=== PATIENT | male | born 1985 | race Two or more races ===

== ENCOUNTER 2024-01-13 08:25 | Inpatient (IN) | payer OTHER ==
[2024-01-13] MEDS ORDERED: METHOCARBAMOL 500 MG TABLET ONE (09:46)
[2024-01-13] MEDS ORDERED: LIDOCAINE 5% TOPICAL PATCH ONE (09:46)
[2024-01-13] MEDS ORDERED: KETOROLAC TROMETHAMINE 15 MG/ML VIAL ONE (09:47)
[2024-01-13] MEDS: LIDOCAINE 5% TOPICAL PATCH TP ONE (09:56)
[2024-01-13] MEDS: KETOROLAC TROMETHAMINE 15 MG/ML VIAL IM ONE (09:56)
[2024-01-13] MEDS: METHOCARBAMOL 500 MG TABLET PO ONE (09:56)
[2024-01-13] MEDS ORDERED: diazePAM 5 MG TABLET ONE (12:03)
[2024-01-13] MEDS ORDERED: DEXAMETHASONE SOD PHOSPHATE 10 MG/1 ML VIAL ONE (12:03)
[2024-01-13] MEDS: diazePAM 5 MG TABLET PO ONE (12:14)
[2024-01-13] MEDS: DEXAMETHASONE SOD PHOSPHATE 10 MG/1 ML VIAL IVPUSH ONE (12:14)
[2024-01-13 12:23] LABS: BASO % 0.2 % (0-2.0); HEMATOCRIT 47.7 % (35.4-49); HEMOGLOBIN 15.9 GM/dL (11.7-16.9); LYMPH % 26.1 % (8-40); MCH 28.8 pg (25.7-33.7); MCHC 33.4 g/dl (32.0-35.9); MEAN CELL VOLUME 86.1 fl (80-96); MONO % 5.5 % (3.8-10.2); NEUT % 67.2 % (42.8-82.8); PLATELET COUNT 205 10^3/uL (134-434); RBC 5.54 M/mm3 (4.00-5.60); RDW 13.6 % (11.9-15.9); WHITE BLOOD COUNT 5.5 K/mm3 (4.0-10.0)
[2024-01-13 12:40] LABS: INR 0.99 (0.83-1.09); PROTHROMBIN TIME (PATIENT) 11.2 SEC (9.7-13.0)
[2024-01-13 12:43] LABS: ACTIVATED PTT 33.3 SECONDS (25.2-36.5)
[2024-01-13 12:47] LABS: POTASSIUM 4.4 mmol/L (3.5-5.1)
[2024-01-13 12:49] LABS: ALBUMIN 3.6 g/dl (3.4-5.0); BLOOD UREA NITROGEN 13.8 mg/dL (7-18); CALCIUM 9.4 mg/dL (8.5-10.1)
[2024-01-13 12:53] LABS: CREATININE 0.9 mg/dL (0.55-1.3)
[2024-01-13 12:54] LABS: BILIRUBIN,TOTAL 0.7 mg/dL (0.2-1); TOT PROT 7.1 g/dl (6.4-8.2)
[2024-01-13] MEDS: morphine SULFATE 4 MG/ML VIAL IVPUSH ONE (16:22)
[2024-01-13] MEDS ORDERED: MORPHINE SULFATE 2 MG/ML SYRINGE IVPUSH PRN (16:22)
[2024-01-13] MEDS: GABAPENTIN 100 MG CAPSULE PO SCH (18:59)
[2024-01-13] MEDS: LIDOCAINE PATCH REMOVAL MC ONE (21:28)
[2024-01-14] MEDS: ACETAMINOPHEN 500 MG TABLET (FP) PO PRN (10:50)
[2024-01-14] MEDS: predniSONE 20 MG TABLET (UD) PO SCH (10:50)
[2024-01-14] MEDS ORDERED: ENOXAPARIN NA (PORCINE) 40 MG/0.4 ML DISP.SYRIN SQ SCH (17:00)
[2024-01-14] MEDS: LIDOCAINE 5% TOPICAL PATCH TP SCH (19:43)
[2024-01-14] MEDS: DOCUSATE SODIUM 100 MG CAPSULE (FP) PO SCH (21:12)
[2024-01-14] MEDS: ENOXAPARIN NA (PORCINE) 40 MG/0.4 ML DISP.SYRIN SQ SCH (21:13)
[2024-01-14] MEDS: LIDOCAINE PATCH REMOVAL MC SCH (23:35)
[2024-01-15 09:33] LABS: BASO % 0.2 % (0-2.0); EOS % 0.3 % (0-4.5); HEMATOCRIT 45.1 % (35.4-49); HEMOGLOBIN 14.8 GM/dL (11.7-16.9); LYMPH % 27.7 % (8-40); MCH 28.7 pg (25.7-33.7); MCHC 32.9 g/dl (32.0-35.9); MEAN CELL VOLUME 87.4 fl (80-96); MEAN PLT VOLUME 9.6 fl (7.5-11.1); MONO % 5.9 % (3.8-10.2); NEUT % 65.9 % (42.8-82.8); PLATELET COUNT 214 10^3/uL (134-434); RBC 5.17 M/mm3 (4.00-5.60); RDW 13.8 % (11.9-15.9); WHITE BLOOD COUNT 7.8 K/mm3 (4.0-10.0)
[2024-01-15 09:51] LABS: INR 1.01 (0.83-1.09); PROTHROMBIN TIME (PATIENT) 11.4 SEC (9.7-13.0)
[2024-01-15 10:19] LABS: POTASSIUM 3.9 mmol/L (3.5-5.1)
[2024-01-15 10:24] LABS: CALCIUM 9.3 mg/dL (8.5-10.1)
[2024-01-15 10:25] LABS: ALBUMIN 3.5 g/dl (3.4-5.0); BLOOD UREA NITROGEN 23.3 mg/dL (7-18); MAGNESIUM 2.3 mg/dL (1.8-2.4)
[2024-01-15 10:28] LABS: CREATININE 1.1 mg/dL (0.55-1.3)
[2024-01-15 10:30] LABS: BILIRUBIN,TOTAL 0.4 mg/dL (0.2-1); TOT PROT 6.8 g/dl (6.4-8.2)
[2024-01-16] MEDS ORDERED: KETOROLAC TROMETHAMINE 15 MG/ML VIAL IVPUSH PRN (09:54)
[2024-01-16] MEDS: KETOROLAC TROMETHAMINE 15 MG/ML VIAL IVPUSH PRN (19:48)
[2024-01-17] MEDS: oxyCODONE HCL 5 MG TABLET PO PRN (21:32)
[2024-01-18 09:48] LABS: BASO % 0.3 % (0-2.0); HEMATOCRIT 43.8 % (35.4-49); HEMOGLOBIN 14.9 GM/dL (11.7-16.9); INR 1.02 (0.83-1.09); LYMPH % 26.5 % (8-40); MCH 29.1 pg (25.7-33.7); MEAN CELL VOLUME 85.5 fl (80-96); MEAN PLT VOLUME 9.1 fl (7.5-11.1); MONO % 8.4 % (3.8-10.2); NEUT % 63.8 % (42.8-82.8); PLATELET COUNT 191 10^3/uL (134-434); PROTHROMBIN TIME (PATIENT) 11.7 SEC (9.7-13.0); RBC 5.12 M/mm3 (4.00-5.60); RDW 13.4 % (11.9-15.9); WHITE BLOOD COUNT 7.8 K/mm3 (4.0-10.0)
[2024-01-18 10:03] LABS: POTASSIUM 4.1 mmol/L (3.5-5.1)
[2024-01-18 10:07] LABS: ALBUMIN 3.1 g/dl (3.4-5.0); BLOOD UREA NITROGEN 21.1 mg/dL (7-18)
[2024-01-18 10:10] LABS: CREATININE 1.1 mg/dL (0.55-1.3)
[2024-01-18 10:11] LABS: MAGNESIUM 2.2 mg/dL (1.8-2.4)
[2024-01-18 10:12] LABS: BILIRUBIN,TOTAL 0.4 mg/dL (0.2-1); TOT PROT 6.4 g/dl (6.4-8.2)
[2024-01-19 09:23] LABS: BASO % 0.1 % (0-2.0); EOS % 0.4 % (0-4.5); HEMATOCRIT 45.3 % (35.4-49); HEMOGLOBIN 15.1 GM/dL (11.7-16.9); LYMPH % 19.6 % (8-40); MCH 28.9 pg (25.7-33.7); MCHC 33.2 g/dl (32.0-35.9); MEAN PLT VOLUME 8.8 fl (7.5-11.1); MONO % 7.3 % (3.8-10.2); NEUT % 72.6 % (42.8-82.8); PLATELET COUNT 204 10^3/uL (134-434); RBC 5.21 M/mm3 (4.00-5.60); RDW 13.1 % (11.9-15.9); WHITE BLOOD COUNT 10.7 K/mm3 (4.0-10.0)
[2024-01-19 09:34] LABS: INR 1.02 (0.83-1.09); PROTHROMBIN TIME (PATIENT) 11.5 SEC (9.7-13.0)
[2024-01-19 09:57] LABS: ALBUMIN 3.3 g/dl (3.4-5.0); BLOOD UREA NITROGEN 21.1 mg/dL (7-18); CALCIUM 9.2 mg/dL (8.5-10.1); MAGNESIUM 2.3 mg/dL (1.8-2.4)
[2024-01-19 10:01] LABS: BILIRUBIN,TOTAL 0.4 mg/dL (0.2-1); TOT PROT 6.8 g/dl (6.4-8.2)
[2024-01-19] MEDS: LIDOCAINE 1%/EPI 1:100000 (20 ML MULTI DOSE VIAL) IJ ONE ×2 (13:08→14:23)
[2024-01-19] MEDS: VANCOMYCIN 1 GM in D5W (PRE-DOCKED) 1,000 MG/250 ML (RESTRICTED TO ID ONLY IVPB ONE ×2 (13:09→14:20)
[2024-01-19] MEDS: GENTAMICIN 80MG PREMIX BAG IVPB ONE ×2 (13:09→15:13)
[2024-01-19] MEDS: ceFAZolin SODIUM 1 GM VIAL IVPB ONE ×2 (13:09→14:20)
[2024-01-19] MEDS: HYDROGEN PEROXIDE 473 ML PO ONE ×2 (13:10→15:13)
[2024-01-19] MEDS ORDERED: LIDOCAINE 1%/EPI 1:100000 (20 ML MULTI DOSE VIAL) ONE (13:21)
[2024-01-19] MEDS ORDERED: THROMBIN (BOVINE) 20,000 UNIT VIAL TP ONE (13:21)
[2024-01-19] MEDS ORDERED: BUPIVACAINE LIPOSOME/PF (EXPAREL) 266 MG/20 ML VIAL ONE (13:21)
[2024-01-19] MEDS ORDERED: BUPIVACAINE HCL/PF 0.5% (5MG/ML) 10 ML VIAL ONE (13:21)
[2024-01-19] MEDS ORDERED: GENTAMICIN SO4 80 MG/2 ML VIAL ONE (13:21)
[2024-01-19] MEDS ORDERED: MIDAZOLAM HCL 2 MG/2 ML SINGLE DOSE VIAL ONE (13:51)
[2024-01-19] MEDS ORDERED: ROCURONIUM BROMIDE 50 MG/5 ML SYRINGE ONE ×2 (13:51→14:09)
[2024-01-19] MEDS ORDERED: PROPOFOL 20 ML ONE (13:51)
[2024-01-19] MEDS ORDERED: ceFAZolin SODIUM 1 GM VIAL ONE (14:20)
[2024-01-19] MEDS ORDERED: VANCOMYCIN 1,000 MG VIAL (RESTRICTED TO ID ONLY) ONE (14:22)
[2024-01-19] MEDS ORDERED: TRANEXAMIC ACID 1000 MG/10 ML VIAL ONE (14:23)
[2024-01-19] MEDS ORDERED: HYDROmorphone HCl 2 MG/ML VIAL ONE (14:31)
[2024-01-19] MEDS ORDERED: LIDOCAINE HCL/PF 2% SDV 5ML VIAL ONE (14:46)
[2024-01-19] MEDS: BUPIVACAINE HCL/PF 0.5% (5MG/ML) 10 ML VIAL IJ ONE (16:30)
[2024-01-19] MEDS: BUPIVACAINE LIPOSOME/PF (EXPAREL) 266 MG/20 ML VIAL NR ONE (16:30)
[2024-01-19] MEDS ORDERED: ONDANSETRON 4 MG/2 ML VIAL IVPUSH PRN ×2 (16:57→18:14)
[2024-01-19] MEDS ORDERED: oxyCODONE HCL 5 MG TABLET PO PRN ×4 (16:57→18:14)
[2024-01-19] MEDS ORDERED: LACTATED RINGERS SOLUTION 1,000 ML IV SCH (17:00)
[2024-01-19] MEDS: CEFAZOLIN 1 GM in DEXTROSE 5%-WATER - 50 ML IVPB SCH (18:00)
[2024-01-19] MEDS: LACTATED RINGERS SOLUTION 1,000 ML IV SCH (19:20)
[2024-01-19] MEDS: KETOROLAC TROMETHAMINE 15 MG/ML VIAL IVPUSH PRN (20:09)
[2024-01-19] MEDS: GABAPENTIN 100 MG CAPSULE PO SCH (21:18)
[2024-01-19] MEDS: DOCUSATE SODIUM 100 MG CAPSULE (FP) PO SCH (21:18)
[2024-01-19] MEDS: LIDOCAINE PATCH REMOVAL MC SCH (21:20)
[2024-01-20] MEDS: CEFAZOLIN 1 GM/D5W 1 GM/50 ML BAG IVPB SCH (02:02)
[2024-01-20] MEDS: PANTOPRAZOLE 40 MG TABLET PO SCH (09:17)
[2024-01-20] MEDS: predniSONE 20 MG TABLET (UD) PO SCH (09:17)
[2024-01-20] MEDS: ACETAMINOPHEN 500 MG TABLET (FP) PO PRN (09:17)
[2024-01-20] MEDS: LIDOCAINE 5% TOPICAL PATCH TP SCH (09:18)
[2024-01-20 09:39] LABS: INR 1.12 (0.83-1.09); PROTHROMBIN TIME (PATIENT) 12.8 SEC (9.7-13.0)
[2024-01-20 09:44] LABS: EOS % 0.4 % (0-4.5); HEMATOCRIT 36.3 % (35.4-49); HEMOGLOBIN 12.6 GM/dL (11.7-16.9); LYMPH % 15.1 % (8-40); MCH 29.6 pg (25.7-33.7); MCHC 34.7 g/dl (32.0-35.9); MEAN CELL VOLUME 85.5 fl (80-96); MONO % 9.5 % (3.8-10.2); PLATELET COUNT 161 10^3/uL (134-434); RBC 4.25 M/mm3 (4.00-5.60); RDW 13.6 % (11.9-15.9); WHITE BLOOD COUNT 9.8 K/mm3 (4.0-10.0)
[2024-01-20] MEDS ORDERED: PANTOPRAZOLE 40 MG TABLET PO SCH (10:00)
[2024-01-20 10:02] LABS: POTASSIUM 4.1 mmol/L (3.5-5.1)
[2024-01-20 10:13] LABS: BLOOD UREA NITROGEN 20.2 mg/dL (7-18); CALCIUM 8.4 mg/dL (8.5-10.1); MAGNESIUM 2.5 mg/dL (1.8-2.4)
[2024-01-20 10:17] LABS: BILIRUBIN,TOTAL 0.5 mg/dL (0.2-1); TOT PROT 5.2 g/dl (6.4-8.2)
[2024-01-20 10:21] LABS: ALBUMIN 2.5 g/dl (3.4-5.0)
[2024-01-20] MEDS: oxyCODONE HCL 5 MG TABLET PO ONE (18:46)
[2024-01-20] MEDS: oxyCODONE HCL 5 MG TABLET PO PRN (21:34)
[2024-01-21] MEDS: ACETAMINOPHEN 1000 MG/100 ML BAG IVPB ONE (04:46)
[2024-01-21] MEDS: POLYETHYLENE GLYCOL (HEALTHYLAX) 3350 17 GM PACKET PO ONE (10:43)
[2024-01-21] MEDS: ACETAMINOPHEN 1000 MG/100 ML BAG IVPB SCH (10:48)
[2024-01-21] MEDS: GABAPENTIN 300 MG CAPSULE PO SCH (13:19)
[2024-01-21] MEDS ORDERED: HYDROmorphone HCL CARPU-JECT 2 MG/1 ML DISP.SYRIN IVPUSH PRN (15:10)
[2024-01-21] MEDS: oxyCODONE HCL 10 MG SUSTAINED ACTING TABLET PO SCH (16:42)
[2024-01-21] MEDS: GABAPENTIN 400 MG CAPSULE PO SCH (21:08)
[2024-01-21] MEDS: DOCUSATE SODIUM 100 MG CAPSULE (FP) PO SCH (21:09)
[2024-01-22] MEDS: oxyCODONE HCL 5 MG TABLET PO PRN (04:35)
[2024-01-22] MEDS: SIMETHICONE 80 MG TAB.CHEW (FP) PO ONE (07:14)
[2024-01-22] MEDS: POLYETHYLENE GLYCOL (HEALTHYLAX) 3350 17 GM PACKET PO SCH (10:09)
[2024-01-22 10:24] LABS: BASO % 0.1 % (0-2.0); EOS % 0.6 % (0-4.5); HEMATOCRIT 37.7 % (35.4-49); HEMOGLOBIN 12.9 GM/dL (11.7-16.9); LYMPH % 16.1 % (8-40); MCH 29.5 pg (25.7-33.7); MCHC 34.3 g/dl (32.0-35.9); MEAN PLT VOLUME 8.8 fl (7.5-11.1); MONO % 8.9 % (3.8-10.2); NEUT % 74.3 % (42.8-82.8); PLATELET COUNT 164 10^3/uL (134-434); RBC 4.38 M/mm3 (4.00-5.60); RDW 13.6 % (11.9-15.9)
[2024-01-22 12:14] LABS: POTASSIUM 4.1 mmol/L (3.5-5.1)
[2024-01-22 12:25] LABS: CALCIUM 8.8 mg/dL (8.5-10.1)
[2024-01-22 12:26] LABS: ALBUMIN 2.8 g/dl (3.4-5.0); BLOOD UREA NITROGEN 16.6 mg/dL (7-18); MAGNESIUM 2.1 mg/dL (1.8-2.4)
[2024-01-22 12:28] LABS: CREATININE 0.9 mg/dL (0.55-1.3)
[2024-01-22 12:30] LABS: BILIRUBIN,TOTAL 0.5 mg/dL (0.2-1)
[2024-01-22] MEDS: diazePAM 5 MG TABLET PO PRN (17:02)
[2024-01-23] MEDS: oxyCODONE HCL 5 MG TABLET PO PRN (04:56)
[2024-01-23 08:46] LABS: BASO % 0.1 % (0-2.0); EOS % 0.6 % (0-4.5); HEMATOCRIT 37.1 % (35.4-49); HEMOGLOBIN 12.9 GM/dL (11.7-16.9); LYMPH % 18.9 % (8-40); MCH 29.7 pg (25.7-33.7); MCHC 34.8 g/dl (32.0-35.9); MEAN CELL VOLUME 85.4 fl (80-96); MEAN PLT VOLUME 8.8 fl (7.5-11.1); MONO % 10.2 % (3.8-10.2); NEUT % 70.2 % (42.8-82.8); PLATELET COUNT 162 10^3/uL (134-434); RBC 4.35 M/mm3 (4.00-5.60); RDW 13.5 % (11.9-15.9); WHITE BLOOD COUNT 10.4 K/mm3 (4.0-10.0)
[2024-01-23 09:35] LABS: POTASSIUM 4.2 mmol/L (3.5-5.1)
[2024-01-23 09:37] LABS: CALCIUM 8.6 mg/dL (8.5-10.1)
[2024-01-23 09:38] LABS: ALBUMIN 2.7 g/dl (3.4-5.0); BLOOD UREA NITROGEN 16.9 mg/dL (7-18); MAGNESIUM 2.2 mg/dL (1.8-2.4)
[2024-01-23 09:41] LABS: CREATININE 0.9 mg/dL (0.55-1.3)
[2024-01-23 09:42] LABS: BILIRUBIN,TOTAL 0.6 mg/dL (0.2-1)
[2024-01-23] MEDS: POLYETHYLENE GLYCOL (HEALTHYLAX) 3350 17 GM PACKET PO SCH ×2 (10:42→21:07)
[2024-01-23] MEDS: SENNOSIDES 8.6MG TABLET (FP) PO SCH ×2 (10:42→21:08)
[2024-01-23] MEDS: SIMETHICONE 80 MG TAB.CHEW (FP) PO PRN (10:42)
[2024-01-23] MEDS: HEPARIN NA (PORCINE) 5,000 UNITS/ML 1ML VIAL SQ SCH ×2 (13:15→21:09)
[2024-01-23] MEDS: LIDOCAINE 5% TOPICAL PATCH TP ONE (16:34)
[2024-01-23] MEDS ORDERED: SIMETHICONE 80 MG TAB.CHEW (FP) PO PRN (16:44)
[2024-01-23] MEDS ORDERED: oxyCODONE HCL 5 MG TABLET PO PRN (16:44)
[2024-01-23] MEDS ORDERED: HYDROmorphone HCL CARPU-JECT 2 MG/1 ML DISP.SYRIN IVPUSH PRN (16:44)
[2024-01-23] MEDS ORDERED: diazePAM 5 MG TABLET PO PRN (16:44)
[2024-01-23] MEDS: oxyCODONE HCL 10 MG SUSTAINED ACTING TABLET PO SCH (21:08)
[2024-01-23] MEDS: GABAPENTIN 400 MG CAPSULE PO SCH (21:08)
[2024-01-23] MEDS: DOCUSATE SODIUM 100 MG CAPSULE (FP) PO SCH (21:08)
[2024-01-23] MEDS: LIDOCAINE PATCH REMOVAL MC SCH ×2 (21:15)
[2024-01-24] MEDS: oxyCODONE HCL 5 MG TABLET PO PRN (02:03)
[2024-01-24 08:32] LABS: BASO % 0.2 % (0-2.0); EOS % 0.3 % (0-4.5); HEMATOCRIT 39.3 % (35.4-49); HEMOGLOBIN 13.1 GM/dL (11.7-16.9); LYMPH % 15.8 % (8-40); MCH 28.8 pg (25.7-33.7); MCHC 33.3 g/dl (32.0-35.9); MEAN CELL VOLUME 86.4 fl (80-96); MONO % 8.4 % (3.8-10.2); NEUT % 75.3 % (42.8-82.8); PLATELET COUNT 174 10^3/uL (134-434); RBC 4.55 M/mm3 (4.00-5.60); RDW 13.2 % (11.9-15.9); WHITE BLOOD COUNT 11.5 K/mm3 (4.0-10.0)
[2024-01-24 08:46] LABS: POTASSIUM 4.2 mmol/L (3.5-5.1)
[2024-01-24 08:53] LABS: ALBUMIN 2.7 g/dl (3.4-5.0); BLOOD UREA NITROGEN 19.2 mg/dL (7-18); MAGNESIUM 2.4 mg/dL (1.8-2.4)
[2024-01-24 08:54] LABS: CREATININE 0.9 mg/dL (0.55-1.3)
[2024-01-24 08:55] LABS: BILIRUBIN,TOTAL 0.5 mg/dL (0.2-1); TOT PROT 6.2 g/dl (6.4-8.2)
[2024-01-24] MEDS: PANTOPRAZOLE 40 MG TABLET PO SCH (10:51)
[2024-01-24] MEDS: predniSONE 20 MG TABLET (UD) PO SCH (10:51)
[2024-01-24] MEDS: LIDOCAINE 5% TOPICAL PATCH TP SCH (10:51)
[2024-01-24] MEDS: SODIUM PHOSPHATE/NA BIPHOS 133 ML ENEMA RC ONE (13:00)
[2024-01-24 13:40] LABS: N-TERMINAL BNP 73.4 pg/ml (5-125)
[2024-01-25] MEDS: ACETAMINOPHEN 325 MG TABLET (FP) PO ONE (06:30)
[2024-01-25 07:50] LABS: HEMATOCRIT 35.5 % (35.4-49); MCH 29.1 pg (25.7-33.7); MCHC 33.9 g/dl (32.0-35.9); MEAN CELL VOLUME 85.8 fl (80-96); MEAN PLT VOLUME 8.2 fl (7.5-11.1); PLATELET COUNT 157 10^3/uL (134-434); RBC 4.14 M/mm3 (4.00-5.60); RDW 13.1 % (11.9-15.9); WHITE BLOOD COUNT 11.5 K/mm3 (4.0-10.0)
[2024-01-25 08:05] LABS: CHLORIDE 101 mmol/L (98-107); POTASSIUM 4.2 mmol/L (3.5-5.1); SODIUM 137 mmol/L (136-145)
[2024-01-25 08:06] LABS: CALCIUM 8.7 mg/dL (8.5-10.1)
[2024-01-25 08:07] LABS: ALBUMIN 2.6 g/dl (3.4-5.0); ANION GAP 6 mmol/L (4-13); BLOOD UREA NITROGEN 18.1 mg/dL (7-18); CO2 29 mmol/L (21-32); GLUCOSE,RANDOM 99 mg/dL (74-106)
[2024-01-25 08:10] LABS: CREATININE 0.9 mg/dL (0.55-1.3); SGOT/AST 113 U/L (15-37); SGPT/ALT 279 U/L (13-61)
[2024-01-25 08:12] LABS: BILIRUBIN,TOTAL 0.8 mg/dL (0.2-1); TOT PROT 6.1 g/dl (6.4-8.2)
[2024-01-25 08:15] LABS: ALK PHOS 183 U/L (45-117)
[2024-01-25] MEDS: predniSONE 20 MG TABLET (UD) PO SCH (09:52)
[2024-01-25] MEDS ORDERED: oxyCODONE HCL 10 MG SUSTAINED ACTING TABLET PO SCH (14:30)
[2024-01-25 14:40] LABS: BILIRUBIN,DIRECT 0.2 mg/dL (0.0-0.2)
[2024-01-26] MEDS: oxyCODONE HCL 5 MG TABLET PO PRN (01:33)
[2024-01-26] MEDS: ACETAMINOPHEN 325 MG TABLET (FP) PO ONE (05:51)
[2024-01-26 07:20] LABS: HEMATOCRIT 37.3 % (35.4-49); HEMOGLOBIN 12.6 GM/dL (11.7-16.9); MCH 29.1 pg (25.7-33.7); MCHC 33.7 g/dl (32.0-35.9); MEAN CELL VOLUME 86.3 fl (80-96); MEAN PLT VOLUME 8.5 fl (7.5-11.1); PLATELET COUNT 169 10^3/uL (134-434); RBC 4.32 M/mm3 (4.00-5.60); RDW 12.8 % (11.9-15.9); WHITE BLOOD COUNT 12.4 K/mm3 (4.0-10.0)
[2024-01-26 07:33] LABS: POTASSIUM 4.2 mmol/L (3.5-5.1)
[2024-01-26 07:41] LABS: ALBUMIN 2.8 g/dl (3.4-5.0); CALCIUM 8.8 mg/dL (8.5-10.1)
[2024-01-26 07:42] LABS: BLOOD UREA NITROGEN 17.1 mg/dL (7-18)
[2024-01-26 07:45] LABS: CREATININE 0.9 mg/dL (0.55-1.3)
[2024-01-26 07:46] LABS: BILIRUBIN,TOTAL 0.8 mg/dL (0.2-1); TOT PROT 6.3 g/dl (6.4-8.2)
[2024-01-26] MEDS ORDERED: morphine CARPU-JECT 2 MG/1 ML DISP.SYRIN IVPUSH PRN (09:58)
[2024-01-26] MEDS ORDERED: oxyCODONE HCL 5 MG TABLET PO PRN ×2 (09:59→12:06)
[2024-01-26] MEDS: ENOXAPARIN NA (PORCINE) 40 MG/0.4 ML DISP.SYRIN SQ SCH (10:24)
[2024-01-26] MEDS: oxyCODONE HCL 10 MG SUSTAINED ACTING TABLET PO SCH (10:25)
[2024-01-26] MEDS ORDERED: SIMETHICONE 80 MG TAB.CHEW (FP) PO PRN (12:39)
[2024-01-26] MEDS: POLYETHYLENE GLYCOL (HEALTHYLAX) 3350 17 GM PACKET PO SCH (13:56)
[2024-01-26] MEDS: SIMETHICONE 80 MG TAB.CHEW (FP) PO SCH (16:50)
[2024-01-26] MEDS ORDERED: HEPARIN NA (PORCINE) 5,000 UNITS/ML 1ML VIAL IVPUSH PRN (19:31)
[2024-01-26] MEDS: HEPARIN NA (PORCINE) 5,000 UNITS/ML 1ML VIAL IVPUSH PRN (21:42)
[2024-01-26] MEDS: HEPARIN INFUSION - 25,000 UNITS/500 ML INFUS.BAG IVPB SCH (21:43)
[2024-01-26] MEDS ORDERED: CHLORHEXIDINE GLUCONATE 4% CLEANSER FOR DECOLONIZATION TP SCH (22:00)
[2024-01-26] MEDS ORDERED: MUPIROCIN 2% TOPICAL OINTMENT FOR DECOLONIZATION NS SCH (22:00)
[2024-01-26] MEDS ORDERED: SENNOSIDES 8.6MG TABLET (FP) PO SCH (22:00)
[2024-01-26] MEDS ORDERED: DOCUSATE SODIUM 100 MG CAPSULE (FP) PO SCH (22:00)
[2024-01-26] MEDS: HEPARIN NA (PORCINE) 5,000 UNITS/ML 1ML VIAL SQ SCH (22:19)
[2024-01-26] MEDS: LIDOCAINE PATCH REMOVAL MC SCH (22:19)
[2024-01-26 23:41] LABS: BASO % 0.3 % (0-2.0); EOS % 0.2 % (0-4.5); HEMATOCRIT 40.4 % (35.4-49); HEMOGLOBIN 13.3 GM/dL (11.7-16.9); LYMPH % 9.5 % (8-40); MCH 28.5 pg (25.7-33.7); MCHC 32.9 g/dl (32.0-35.9); MEAN CELL VOLUME 86.7 fl (80-96); MEAN PLT VOLUME 8.4 fl (7.5-11.1); MONO % 7.5 % (3.8-10.2); NEUT % 82.5 % (42.8-82.8); PLATELET COUNT 218 10^3/uL (134-434); RBC 4.65 M/mm3 (4.00-5.60); RDW 13.1 % (11.9-15.9); WHITE BLOOD COUNT 13.4 K/mm3 (4.0-10.0)
[2024-01-27 00:43] LABS: ALBUMIN 2.7 g/dl (3.4-5.0); BILIRUBIN,TOTAL 0.8 mg/dL (0.2-1); BLOOD UREA NITROGEN 15.8 mg/dL (7-18); CALCIUM 8.7 mg/dL (8.5-10.1); CREATININE 0.9 mg/dL (0.55-1.3); MAGNESIUM 2.4 mg/dL (1.8-2.4); PHOSPHOROUS 3.7 mg/dL (2.5-4.9); POTASSIUM 4.2 mmol/L (3.5-5.1); TOT PROT 6.6 g/dl (6.4-8.2)
[2024-01-27 07:37] LABS: HEMATOCRIT 37.1 % (35.4-49); HEMOGLOBIN 12.8 GM/dL (11.7-16.9); MCH 29.5 pg (25.7-33.7); MCHC 34.5 g/dl (32.0-35.9); MEAN CELL VOLUME 85.4 fl (80-96); MEAN PLT VOLUME 8.5 fl (7.5-11.1); PLATELET COUNT 188 10^3/uL (134-434); RBC 4.34 M/mm3 (4.00-5.60); RDW 13.1 % (11.9-15.9); WHITE BLOOD COUNT 12.1 K/mm3 (4.0-10.0)
[2024-01-27 08:07] LABS: ALBUMIN 2.6 g/dl (3.4-5.0); BLOOD UREA NITROGEN 17.8 mg/dL (7-18); CREATININE 0.9 mg/dL (0.55-1.3); MAGNESIUM 2.4 mg/dL (1.8-2.4); POTASSIUM 4.1 mmol/L (3.5-5.1)
[2024-01-27 08:10] LABS: BILIRUBIN,TOTAL 0.8 mg/dL (0.2-1); TOT PROT 6.6 g/dl (6.4-8.2)
[2024-01-27] MEDS: PANTOPRAZOLE 40 MG TABLET PO SCH (10:00)
[2024-01-27] MEDS ORDERED: ENOXAPARIN NA (PORCINE) 40 MG/0.4 ML DISP.SYRIN SQ SCH (10:00)
[2024-01-27] MEDS ORDERED: predniSONE 20 MG TABLET (UD) PO SCH (10:00)
[2024-01-27] MEDS: MUPIROCIN 2% TOPICAL OINTMENT FOR DECOLONIZATION NS SCH (11:00)
[2024-01-27] MEDS: LIDOCAINE 5% TOPICAL PATCH TP SCH (11:09)
[2024-01-27] MEDS ORDERED: HEPARIN INFUSION - 25,000 UNITS/500 ML INFUS.BAG IVPB SCH (11:15)
[2024-01-27] MEDS ORDERED: HEPARIN NA (PORCINE) 5,000 UNITS/ML 1ML VIAL IVPUSH PRN (11:41)
[2024-01-27] MEDS: HEPARIN INFUSION - 25,000 UNITS/500 ML INFUS.BAG IVPB SCH (11:49)
[2024-01-27] MEDS: HEPARIN NA (PORCINE) 5,000 UNITS/ML 1ML VIAL IVPUSH ONE (11:59)
[2024-01-27] MEDS: SIMETHICONE 80 MG TAB.CHEW (FP) PO SCH (12:12)
[2024-01-27] MEDS ORDERED: MIDAZOLAM HCL 2 MG/2 ML SINGLE DOSE VIAL ONE (12:46)
[2024-01-27] MEDS ORDERED: HEPARIN NA (PORCINE) 5,000 UNITS/ML 1ML VIAL ONE (15:33)
[2024-01-27] MEDS: LIDOCAINE PATCH REMOVAL MC SCH (21:01)
[2024-01-27] MEDS ORDERED: CHLORHEXIDINE GLUCONATE 4% CLEANSER FOR DECOLONIZATION TP SCH (22:00)
[2024-01-27] MEDS: oxyCODONE HCL 5 MG TABLET PO PRN (22:35)
[2024-01-27] MEDS: ONDANSETRON 4 MG/2 ML VIAL IVPUSH PRN (23:12)
[2024-01-28] MEDS: HEPARIN NA (PORCINE) 5,000 UNITS/ML 1ML VIAL IVPUSH PRN (04:26)
[2024-01-28 07:11] LABS: BASO % 0.3 % (0-2.0); EOS % 0.3 % (0-4.5); HEMATOCRIT 36.9 % (35.4-49); HEMOGLOBIN 12.4 GM/dL (11.7-16.9); LYMPH % 9.8 % (8-40); MCH 28.9 pg (25.7-33.7); MCHC 33.5 g/dl (32.0-35.9); MEAN CELL VOLUME 86.3 fl (80-96); MEAN PLT VOLUME 8.3 fl (7.5-11.1); NEUT % 79.6 % (42.8-82.8); PLATELET COUNT 227 10^3/uL (134-434); RBC 4.27 M/mm3 (4.00-5.60); RDW 13.2 % (11.9-15.9); WHITE BLOOD COUNT 13.3 K/mm3 (4.0-10.0)
[2024-01-28 07:17] LABS: POTASSIUM 4.2 mmol/L (3.5-5.1)
[2024-01-28 07:21] LABS: ALBUMIN 2.4 g/dl (3.4-5.0); BLOOD UREA NITROGEN 18.2 mg/dL (7-18); CALCIUM 8.7 mg/dL (8.5-10.1)
[2024-01-28 07:24] LABS: CREATININE 0.9 mg/dL (0.55-1.3)
[2024-01-28 07:26] LABS: TOT PROT 6.8 g/dl (6.4-8.2)
[2024-01-28 07:54] LABS: INR 1.28 (0.83-1.09); PROTHROMBIN TIME (PATIENT) 14.6 SEC (9.7-13.0)
[2024-01-28] MEDS: PANTOPRAZOLE 40 MG TABLET PO SCH (09:20)
[2024-01-28] MEDS: LIDOCAINE 5% TOPICAL PATCH TP SCH (09:20)
[2024-01-28] MEDS ORDERED: predniSONE 10 MG TABLET (UD) PO SCH ×2 (10:00)
[2024-01-28] MEDS: APIXABAN 5 MG TABLET PO SCH ×2 (11:14→22:10)
[2024-01-28 14:14] VITALS: BMI 28.4
[2024-01-28] MEDS ORDERED: ONDANSETRON 4 MG/2 ML VIAL IVPUSH PRN (17:54)
[2024-01-28] MEDS ORDERED: LIDOCAINE PATCH REMOVAL MC SCH (22:00)
[2024-01-28] MEDS: LIDOCAINE PATCH REMOVAL MC SCH (22:17)
[2024-01-29] MEDS: oxyCODONE HCL 5 MG TABLET PO PRN ×2 (02:29→20:20)
[2024-01-29] MEDS: NITROGLYCERIN SUBLINGUAL 1/150 0.4 MG TAB SL ONE (03:35)
[2024-01-29 03:41] LABS: BASO % 0.2 % (0-2.0); EOS % 0.4 % (0-4.5); HEMATOCRIT 36.3 % (35.4-49); HEMOGLOBIN 11.8 GM/dL (11.7-16.9); LYMPH % 10.5 % (8-40); MCH 28.2 pg (25.7-33.7); MCHC 32.6 g/dl (32.0-35.9); MEAN CELL VOLUME 86.3 fl (80-96); MEAN PLT VOLUME 8.1 fl (7.5-11.1); MONO % 7.3 % (3.8-10.2); NEUT % 81.6 % (42.8-82.8); PLATELET COUNT 202 10^3/uL (134-434); WHITE BLOOD COUNT 11.8 K/mm3 (4.0-10.0)
[2024-01-29 03:54] LABS: ARTERIAL BLOOD GAS BASE EXCESS 0.3 mmol/L (-2-2); ARTERIAL BLOOD GAS PO2 83.6 mmHg (80-100); ARTERIAL BLOOD GAS pH 7.484 (7.350-7.450)
[2024-01-29 03:55] LABS: ALLENS TEST POSITIVE
[2024-01-29 03:57] LABS: POTASSIUM 4.6 mmol/L (3.5-5.1)
[2024-01-29 03:59] LABS: CALCIUM 8.8 mg/dL (8.5-10.1)
[2024-01-29 04:00] LABS: ALBUMIN 2.4 g/dl (3.4-5.0); BLOOD UREA NITROGEN 18.7 mg/dL (7-18); MAGNESIUM 2.2 mg/dL (1.8-2.4)
[2024-01-29 04:03] LABS: PHOSPHOROUS 2.8 mg/dL (2.5-4.9)
[2024-01-29 04:04] LABS: BILIRUBIN,TOTAL 0.8 mg/dL (0.2-1); TOT PROT 6.6 g/dl (6.4-8.2)
[2024-01-29] MEDS ORDERED: ONDANSETRON 4 MG/2 ML VIAL IVPUSH PRN (07:50)
[2024-01-29] MEDS: ENOXAPARIN NA (PORCINE) 100 MG/1 ML DISP.SYRIN SQ SCH (09:15)
[2024-01-29] MEDS: PANTOPRAZOLE 40 MG TABLET PO SCH (09:15)
[2024-01-29] MEDS: LIDOCAINE 5% TOPICAL PATCH TP SCH (09:16)
[2024-01-29] MEDS: PIPERACILLIN/TAZOB 3.375 GM 3.375 GM in DEXTROSE 5%-WATER - 50 ML IVPB SCH (09:16)
[2024-01-29] MEDS ORDERED: PIPERACILLIN/TAZOB 3.375 GM 3.375 GM in DEXTROSE 5%-WATER - 50 ML IVPB SCH (10:00)
[2024-01-29] MEDS ORDERED: APIXABAN 5 MG TABLET PO SCH (10:00)
[2024-01-29] MEDS ORDERED: LIDOCAINE 5% TOPICAL PATCH TP SCH (10:00)
[2024-01-29] MEDS ORDERED: PANTOPRAZOLE 40 MG TABLET PO SCH (10:00)
[2024-01-29] MEDS: ACETAMINOPHEN 325 MG TABLET (FP) PO PRN (12:05)
[2024-01-29] MEDS: ALPRAZolam 0.25 MG TABLET PO PRN (20:20)
[2024-01-29] MEDS: KETOROLAC TROMETHAMINE 15 MG/ML VIAL IM ONE (20:21)
[2024-01-29] MEDS: APIXABAN 5 MG TABLET PO SCH (21:01)
[2024-01-29] MEDS: LIDOCAINE PATCH REMOVAL MC SCH (21:02)
[2024-01-30 09:16] LABS: BASO % 0.2 % (0-2.0); EOS % 0.7 % (0-4.5); HEMOGLOBIN 12.1 GM/dL (11.7-16.9); LYMPH % 10.6 % (8-40); MCH 28.9 pg (25.7-33.7); MCHC 33.7 g/dl (32.0-35.9); MEAN CELL VOLUME 85.8 fl (80-96); MEAN PLT VOLUME 8.5 fl (7.5-11.1); MONO % 6.3 % (3.8-10.2); NEUT % 82.2 % (42.8-82.8); PLATELET COUNT 267 10^3/uL (134-434); RBC 4.19 M/mm3 (4.00-5.60); RDW 13.2 % (11.9-15.9); WHITE BLOOD COUNT 10.6 K/mm3 (4.0-10.0)
[2024-01-30 09:51] LABS: POTASSIUM 4.2 mmol/L (3.5-5.1)
[2024-01-30 10:06] LABS: ALBUMIN 2.5 g/dl (3.4-5.0); CALCIUM 9.4 mg/dL (8.5-10.1)
[2024-01-30 10:10] LABS: CREATININE 0.9 mg/dL (0.55-1.3)
[2024-01-30 10:11] LABS: BILIRUBIN,TOTAL 1.1 mg/dL (0.2-1); TOT PROT 6.7 g/dl (6.4-8.2)
[2024-01-30 10:14] LABS: BLOOD UREA NITROGEN 18.1 mg/dL (7-18)
[2024-01-30] MEDS ORDERED: oxyCODONE HCL 5 MG TABLET PO PRN (13:14)
[2024-01-30] MEDS: ACETAMINOPHEN 1000 MG/100 ML BAG IVPB SCH (13:35)
[2024-01-30] MEDS: morphine SULFATE 4 MG/ML VIAL IVPUSH PRN (13:39)
[2024-01-30] MEDS: POLYETHYLENE GLYCOL (HEALTHYLAX) 3350 17 GM PACKET PO SCH (14:48)
[2024-01-30] MEDS: CELECOXIB 200 MG CAPSULE PO SCH (16:05)
[2024-01-30 18:36] VITALS: BP 97/58; PULSE 98; RESP 17; TEMP 98.6
[2024-01-30] MEDS ORDERED: SENNOSIDES 8.6MG TABLET (FP) PO SCH (22:00)
== END 2024-01-30 22:36 | disposition short-term general hospital (02) | DRG 304 ==
LOC: JER 08:25 → JERBED 16:12 → OBSVTOIN 16:21 → J8W 16:59 → J4W 01-23 17:44 → J6S 01-26 12:09 → J8W 01-26 21:05 → J4W 01-26 21:13 → JICU 01-26 23:14 → J7W 01-28 17:52 → J4S 01-29 06:42
PROVIDERS: ADMIT Internal Medicine; ATTEND Internal Medicine
PROC: 0SG30K1 Fusion of Lumbosacral Joint with Nonautologous Tissue Substitute, Posterior Approach, Posterior Column, Open Approach (ICD-10-PCS; 2024-01-19)
PROC: 0SB40ZZ Excision of Lumbosacral Disc, Open Approach (ICD-10-PCS; 2024-01-19)
PROC: 0QS004Z Reposition Lumbar Vertebra with Internal Fixation Device, Open Approach (ICD-10-PCS; 2024-01-19)
PROC: 0SG30AJ Fusion of Lumbosacral Joint with Interbody Fusion Device, Posterior Approach, Anterior Column, Open Approach (ICD-10-PCS; principal; 2024-01-19 13:00)
PROC: 01NB0ZZ Release Lumbar Nerve, Open Approach (ICD-10-PCS; 2024-01-27)
PROC: 02CQ3ZZ Extirpation of Matter from Right Pulmonary Artery, Percutaneous Approach (ICD-10-PCS; 2024-01-27)
PROC: B30SZZZ Plain Radiography of Right Pulmonary Artery (ICD-10-PCS; 2024-01-27)
DX: M51.16 Intervertebral disc disorders with radiculopathy, lumbar region (principal); I26.92 Saddle embolus of pulmonary artery without acute cor pulmonale; I26.94 Multiple subsegmental thrombotic pulmonary emboli without acute cor pulmonale; I82.412 Acute embolism and thrombosis of left femoral vein; J90 Pleural effusion, not elsewhere classified; I82.432 Acute embolism and thrombosis of left popliteal vein; I82.442 Acute embolism and thrombosis of left tibial vein; R04.2 Hemoptysis; T81.72XA Complication of vein following a procedure, not elsewhere classified, initial encounter; G97.82 Other postprocedural complications and disorders of nervous system; Y83.8 Other surgical procedures as the cause of abnormal reaction of the patient, or of later complication, without mention of misadventure at the time of the procedure; M43.16 Spondylolisthesis, lumbar region; R07.89 Other chest pain; R50.9 Fever, unspecified; R26.2 Difficulty in walking, not elsewhere classified; K59.03 Drug induced constipation; T40.2X5A Adverse effect of other opioids, initial encounter
CPT/HCPCS: 0241U-QW; 36415; 36600; 37184; 71045-TC-FY; 71275-TC; 72131-TC; 72148-TC; 72192-TC; 76000-TC-FY; 76705-TC; 80053; 80061; 80076; 82550; 82553; 82803; 83036; 83605; 83735; 83880; 84100; 84443; 84484; 85025; 85027; 85379; 85610; 85730; 86705; 86850; 86900; 86901; 87340; 87481; 87517; 87522; 93005; 93010; 93306-TC; 93970-TC; 94010; 94760; 97116-GP; 97161-GP; 99285-25; C1713; C1889; G0378; J0131; J1100; J1644; Q9967

== ENCOUNTER 2024-02-29 09:28 | Observation (INO) | payer OTHER ==
[2024-02-29 09:35] VITALS: BMI 27.9
[2024-02-29 11:24] LABS: BASO % 0.5 % (0-2.0); EOS % 1.1 % (0-4.5); HEMATOCRIT 41.5 % (35.4-49); HEMOGLOBIN 13.3 GM/dL (11.7-16.9); MCH 27.5 pg (25.7-33.7); MEAN CELL VOLUME 85.9 fl (80-96); MEAN PLT VOLUME 8.2 fl (7.5-11.1); MONO % 5.4 % (3.8-10.2); PLATELET COUNT 199 10^3/uL (134-434); RBC 4.84 M/mm3 (4.00-5.60); RDW 13.9 % (11.9-15.9); WHITE BLOOD COUNT 6.3 K/mm3 (4.0-10.0)
[2024-02-29 11:42] LABS: INR 1.19 (0.83-1.09); PROTHROMBIN TIME (PATIENT) 13.6 SEC (9.7-13.0)
[2024-02-29 11:43] LABS: CALCIUM 9.3 mg/dL (8.5-10.1)
[2024-02-29 11:44] LABS: ALBUMIN 3.4 g/dl (3.4-5.0)
[2024-02-29 11:45] LABS: ACTIVATED PTT 31.3 SECONDS (25.2-36.5)
[2024-02-29 11:47] LABS: CREATININE 0.8 mg/dL (0.55-1.3)
[2024-02-29 11:48] LABS: BILIRUBIN,TOTAL 0.5 mg/dL (0.2-1)
[2024-02-29 11:52] LABS: N-TERMINAL BNP 34.5 pg/ml (5-125)
[2024-02-29] MEDS ORDERED: POLYETHYLENE GLYCOL (HEALTHYLAX) 3350 17 GM PACKET PO PRN (17:31)
[2024-02-29] MEDS ORDERED: ACETAMINOPHEN 325 MG TABLET (FP) PO PRN (17:34)
[2024-02-29] MEDS ORDERED: APIXABAN 5 MG TABLET ONE (21:34)
[2024-02-29] MEDS: APIXABAN 5 MG TABLET PO SCH (21:39)
[2024-03-01 08:13] LABS: BASO % 0.4 % (0-2.0); EOS % 2.5 % (0-4.5); HEMATOCRIT 39.2 % (35.4-49); HEMOGLOBIN 13.3 GM/dL (11.7-16.9); LYMPH % 26.4 % (8-40); MCH 28.6 pg (25.7-33.7); MCHC 33.8 g/dl (32.0-35.9); MEAN CELL VOLUME 84.7 fl (80-96); MEAN PLT VOLUME 9.1 fl (7.5-11.1); NEUT % 63.7 % (42.8-82.8); PLATELET COUNT 182 10^3/uL (134-434); RBC 4.63 M/mm3 (4.00-5.60); RDW 13.8 % (11.9-15.9)
[2024-03-01 08:27] LABS: POTASSIUM 4.2 mmol/L (3.5-5.1)
[2024-03-01] MEDS ORDERED: PANTOPRAZOLE 40 MG TABLET PO ONE (08:31)
[2024-03-01] MEDS ORDERED: APIXABAN 5 MG TABLET ONE (08:32)
[2024-03-01 08:35] LABS: ALBUMIN 3.4 g/dl (3.4-5.0); BLOOD UREA NITROGEN 14.3 mg/dL (7-18); CALCIUM 9.3 mg/dL (8.5-10.1)
[2024-03-01 08:38] LABS: CREATININE 0.9 mg/dL (0.55-1.3)
[2024-03-01 08:39] LABS: BILIRUBIN,TOTAL 0.5 mg/dL (0.2-1); TOT PROT 6.9 g/dl (6.4-8.2)
[2024-03-01 09:41] VITALS: BP 125/76; PULSE 63; RESP 16; TEMP 98.3
[2024-03-01] MEDS: PANTOPRAZOLE 40 MG TABLET PO SCH (10:30)
== END 2024-03-01 10:42 | disposition home or self-care (01) ==
LOC: JERFT 09:28 → JER 09:28 → JERBED 17:22
PROVIDERS: ADMIT Internal Medicine; ATTEND Internal Medicine
DX: R55 Syncope and collapse (principal); R91.1 Solitary pulmonary nodule; R42 Dizziness and giddiness; Z86.718 Personal history of other venous thrombosis and embolism; Z79.01 Long term (current) use of anticoagulants; Z87.828 Personal history of other (healed) physical injury and trauma; T14.8XXA Other injury of unspecified body region, initial encounter; X58.XXXA Exposure to other specified factors, initial encounter; Y99.8 Other external cause status
CPT/HCPCS: 0241U-QW; 36415; 71275-TC; 80053; 83880; 84484; 85025; 85610; 85730; 86850; 86900; 86901; 93005; 93010; 93970-TC; 99285-25; G0378; Q9967